=== PATIENT | female | born 1970 | race Caucasian/White ===

== ENCOUNTER 2016-09-05 08:16 | Day surgery (SDC) | payer OTHER ==
[~2016-09-05 08:16] MED LIST: FENTANYL 100 MCG/2 ML VIAL ONE; KETOROLAC TROMETHAMINE 30 MG/ML 1 ML VIAL ONE; LACTATED RINGERS 1,000 ML IV SCH; METOCLOPRAMIDE HCL 5 MG/ML 2ML VIAL ONE; ONDANSETRON 4 MG/2ML 2 ML VIAL ONE; PROPOFOL 0 ML IV ONE
[2016-09-05] MEDS ORDERED: PROPOFOL 20 ML IV ONE (09:11)
--- NOTE | 2016-09-12 14:20 | SURGPATH ---
[facility] [address] [place] [id number] Patient Name: JALEESA BLANCO MR#: [id number] : 1970 Gender: F Specimen #: [id number] Collected: 09/05/2016 Received: 09/06/2016 Reported: 09/09/2016 Submitting Phys: SB BARRERA Copy To Phys: [facility] Clinical History / Pre-Operative Diagnosis: DIARRHEA; LLQ PAIN; NAUSEA; TENESMUS; RULE OUT ILEITIS AND COLITIS Specimen Source / Surgical Procedure Performed: #1-TERMINAL ILEUM BIOPSY; #2-CECAL BIOPSY; #3-SIGMOID BIOPSY AT 30 CM Interpretation: 1. TERMINAL ILEUM, BIOPSY: - SUPERFICIAL BIOPSIES WITH NO DIAGNOSTIC ABNORMALITIES 2. CECUM, BIOPSY: - NO DIAGNOSTIC ABNORMALITIES 3. SIGMOID COLON, 30 CM, BIOPSY: - NO DIAGNOSTIC ABNORMALITIES Electronically Signed Out Jeri Montemayor M.D. Gross Description: #1 The specimen is received in a formalin filled container labeled with the patient's name and "terminal ileum biopsy". Two jimenez-navarro biopsies are 0.2 and 0.3 cm. Totally embedded in cassette #1. #2 The specimen is received in a formalin filled container labeled with the patient's name and "cecal biopsy". Two navarro biopsies are each 0.2 cm. Totally embedded in cassette #2. #3 The specimen is received in a formalin filled container labeled with the patient's name and "sigmoid biopsy at 30 cm". A single navarro biopsy is 0.3 cm. Totally embedded in cassette #3. Jori Ace Microscopic Description: Part 1: Sections show terminal ileum with overall intact architecture with a villous to crypt ratio of three-one. No increased intraepithelial lymphocytes, thickened subepithelial collagen band, or active ileitis is seen. The fragments are very superficial. Part 2: Sections show colonic mucosa with overall intact architecture with straight crypts extending to the muscularis mucosa. No increased intraepithelial lymphocytes, thickened subepithelial collagen band, or active colitis is seen. No granulomas, dysplasia, or carcinoma is seen. Part 3: Sections show colonic mucosa with overall intact architecture with straight crypts extending to the muscularis mucosa. No increased intraepithelial lymphocytes, thickened subepithelial collagen band, or active colitis is seen. No granulomas, dysplasia, or carcinoma is seen. 1: 27714 2: 30772 3: 21241 R19.7
== END 2016-09-05 15:14 | disposition home or self-care (01) ==
LOC: SDC 08:16
PROVIDERS: ATTEND Internal Medicine Gastroenterology
DX: R10.32 Left lower quadrant pain (principal); R19.7 Diarrhea, unspecified; R63.4 Abnormal weight loss; K59.8 Other specified functional intestinal disorders; Z87.891 Personal history of nicotine dependence